=== PATIENT | male | born 1945 | race Caucasian/White ===

== ENCOUNTER 2022-10-17 09:18 | Outpatient (REF) | payer MEDICARE, SELFPAY ==
[2022-10-17 11:42] LABS: Vitamin B12 624 pg/mL (200-900)
[2022-10-21 10:51] LABS: Lyme Abs Screen POSITIVE
[2022-10-22 15:38] LABS: 18 KD (IgG) Band NON-REACTIVE; 23 KD (IgG) Band REACTIVE; 23 KD (IgM) Band REACTIVE; 28 KD (IgG) Band NON-REACTIVE; 30 KD (IgG) Band NON-REACTIVE; 39 KD (IgM) Band NON-REACTIVE; 39KD (IgG) Band NON-REACTIVE; 41 KD (IgM) Band REACTIVE; 41KD (IgG) Band REACTIVE; 45 KD (IgG) Band NON-REACTIVE; 58 KD (IgG) Band NON-REACTIVE; 66 KD (IgG) Band NON-REACTIVE; 93 KD (IgG) Band NON-REACTIVE; Lyme IgG Blot Interp NEGATIVE (NEGATIVE); Lyme IgM Blot Interp POSITIVE (NEGATIVE)
== END 2022-10-17 09:19 | disposition home or self-care (01) ==
LOC: HO.LAB 09:18
PROVIDERS: Visit Provider Psychiatry & Neurology Neurology
DX: G30.9 Alzheimer's disease, unspecified (principal)
CPT/HCPCS: 36415; 82607; 86617; 86618

== ENCOUNTER 2025-05-17 08:28 | Outpatient (AMB) | payer BC, SELFPAY ==
--- OUTSIDE RECORDS SUMMARY | 2025-05-17 08:36 | XMS_ITS | Clinical Summary ---
Author Organization [employer] Address [address] [facility] [address] [place] [address] Care Team Providers Care Chief Radiology Name Role Phone Cristina Estevez FURNACE LOADER Primary Care Provider [phone] Allergies Active Allergy Reactions Criticality Noted Date Comments Bee Venom Anaphylaxis High 12/31/2022 Other reaction(s): head and neck swelling HAS NOT BEEN STUNG IN OVER 30 YEARS Medications EPINEPHrine (Epipen) 0.3 MG/0.3ML injection syringe as directed Injection prn bee sting for 30 days 04/09/20 14 Active Multiple Vitamins-[place] als (Multivitamin Adults 50+) tablet Multivitamin Active aspirin 81 MG EC tablet Take 81 mg by mouth in the morning. Active saccharomyces boulardii (Florastor) 250 MG capsule Take 250 mg by mouth Once per day. Active tamsulosin (Flomax) 0.4 MG 24 hr capsuleIndicat ions:Benign prostatic hyperplasia with urinary frequency TAKE 2 CAPSULES (0.8 MG) BY MOUTH IN THE MORNING. 180 capsule 3 11/16/19 25 026 Active memantine (Namenda) 10 MG tablet Take 1 tablet (10 mg) by mouth 2 times daily. 180 tablet 3 01/19/20 25 026 Active donepezil (Aricept) 10 MG tabletIndicati ons:Tremor, unspecified TAKE 1 TABLET BY MOUTH EVERYDAY AT BEDTIME 90 tablet 1 04/05/20 25 Active traZODone (Desyrel) 50 MG tablet TAKE 1 TABLET BY MOUTH EVERY DAY AT BEDTIME NEEDED X90 DAYS 90 tablet 05/10/20 25 Active traZODone (Desyrel) 50 MG tablet TAKE 1 TABLET BY MOUTH EVERY DAY AT BEDTIME NEEDED X90 DAYS 90 tablet 02/10/20 25 025 Discontinued Active Problems Problem Noted Date Diagnosed Date Alzheimer's dementia 07/22/2024 Overview (07/22/2024): Diagnosed with early-onset Alzheimer's dementia by neurologist 06/2024. PET scan ordered by neuro. He is considering IV therapy Leqembi. He is cognitively intact at this time, able to perform ADLs. Encouraged to follow-up with neuro for any new symptoms or changes. Chronic pain of right knee 04/20/2024 Overview (07/22/2024): Intermittent for years. Fell into a ditch and hit concrete forms many many years ago. Has been worse for the last 4 months. Discussed can use knee sleeve if pain returns and to notify provider. Discussed physical therapy, patient declines at this time. Tick bite 04/20/2024 Overview (04/20/2024): Needs prophylaxis to have at home. Had multiple documented episodes of Lyme disease. Works on farm. Elevated CK 04/02/2024 Overview (04/02/2024): Images from the original note were not included. Liver and kidney functions remained normal during elevated CK. Advised aggressive hydration. CK normalized, unclear if associated to excessive yardwork vs Lyme. Will continue to monitor. Other fatigue 04/02/2024 Overview (04/02/2024): In treatment for Lyme - brain fog improving but fatigue continues. Will check labs and continue to discuss. 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 Referred to rheumatology Assessment & Plan (10/28/2023 9:29 PM EST): Positive Lyme panel September 2022 with unknown duration of disease Treated with doxycycline 3-4 times between October 2021 and July 2023 Persistently Lyme antibody IgG and IgM positive, most recently tested 08/06/23 Literature review indicates that both IgG and IgM antibodies can persist months or years after successful treatment and IgM antibodies should not be considered to indicate ongoing infection Persistent symptoms indicative of post-Lyme syndrome. Refer to rheumatology for ongoing management Other constipation 08/28/2023 Overview (09/12/2023): Constipation, generally while traveling, but started prior to trip. Was significant enough that pt cancelled his trip. Did not improve with Miralax. Had watery stool with Milk of Mag. No blood, N/V, abdominal pain. Abdominal exam benign with increased bowel sounds. Discussed options - symptoms are improving so watch and wait recommended. If symptoms fail to resolve or worsen, recommend abdominal xray. Can treat symptomatically if needed. Can take GasX for bloating/flatulence. If constipation returns can trial Colace stool softener. If diarrhea/watery stools - can take Imodium. Follow up with provider next week with update. Pigment dispersion syndrome of both eyes 023 Counseling about travel 06/13/2023 Overview (09/12/2023): Upcoming trip to [facility], leaving 09/06/23. Has been multiple times in the past. Reviewed CDC immunization recommendations - Mr. Barney states he has had all the recommended vaccines. Discussed Malaria prophylaxis - states it upsets his stomach and has decided against taking it. Routine general medical exam ination at a health care facility 05/15/2023 Overview (05/15/2023): CPE done 05/15/23. HEALTH CARE MAINTENANCE: Colonoscopy (age 45-75): Last colonoscopy at [facility]. No diarrhea/constipation/blood in stool. AAA Screen (age 65-75, ever smoked): Never smoker LDCT (smoke >30 pack year, age 55-80): Never smoker DEXA (age 70): Never been done. IMMUNIZATIONS: Tetanus (every 10 years): Done 02/2019 Pneumococcal (age 65): Done 2016 Shingrix (age 50): Done 2019 COVID: Pfizer x 1. Assessment & Plan (05/15/2023 5:37 PM EDT): All HCM reviewed, as above. Osteoporosis screening 05/15/2023 Assessment & Plan (05/15/2023 5:36 PM EDT): Never been done. Agreeable to DEXA scan. Decreased hearing of both ears 05/15/2023 Enlarged prostate 05/15/2023 Arthralgia of multiple joints 02/06/2023 Lyme disease 02/06/2023 Overview (04/20/2024): History of multiple episodes of Lyme requiring treatment. Was treated September 2022. Treated with Doxycycline x 21 days. Symptoms resolved. Symptoms returned 03/2023, Lyme +. Treated with Doxycycline x 21 days. Symptoms returned 02/2024, Lyme +. Treated with Doxycycline x 21 days. Now feeling back to baseline. Will have Doxycycline prophylaxis to take any time there is a tick on him to help prevent future Lyme disease. Assessment & Plan (05/15/2023 5:34 PM EDT): Lyme testing positive (IgM). Discussed treatment options. Will start Doxycycline x 21 days. Reviewed medication, administration, and potential side effects. After successful treatment, plan to Rx prophylactic Doxycycline for after tick bite to prevent Lyme disease in future. Minimal cognitive impairment 02/06/2023 Overview (02/06/2023): Engaged with Neurology - Dr. Lora. On Aricept. Muscle cramps 02/06/2023 Overview (04/02/2024): Having occasional leg cramps. Bought OTC Magnesium - ok to start taking. Call clinic if S/S fail to improve or worsen in any way. Assessment & Plan (02/06/2023 9:22 AM EDT): Mostly at night. Was told is side effect from Aricept. Will check labs. Tremor 02/06/2023 Overview (05/15/2023): Seen by Dr. Gutierrez, Neurology. Essential tremor - No further assessment needed. [place] 02/06/2023 Assessment & Plan (02/06/2023 9:21 AM EDT): Seen by podiatry 6 months ago - corn was shaved. Continues to have pain when walking. Advised OTC [place] pads or hydrocolloid bandages until able to be seen by podiatry again. Pt will call for an appointment to see director of content and programming. Low back pain 12/31/2022 Overview (02/06/2023): Was seeing chiropractor. Was having lumbar muscle spasms. None in a few years. Insomnia 12/31/2022 Overview (07/22/2024): Sleep maintenance insomnia. No difficulty with sleep onset. Taking trazodone 50 mg most nights, continues with sleeping issue. He states that he is not bothered by this issue overall. No daytime fatigue. Advised patient that he can increase trazodone to 75 mg if needed. We will continue to monitor. Assessment & Plan (05/15/2023 5:32 PM EDT): Will continue current treatment plan. Hammer toe of left foot 12/31/2022 Anxiety 12/31/2022 Overview (02/06/2023): Denies any current symptoms. Benign prostatic hyperplasia with urinary freque ncy 12/31/2022 Overview (09/12/2023): On Flomax. Was helpful at first, but now symptoms restarting. Discussed treatment options. Will increase Flomax dose. Assessment & Plan (02/06/2023 9:18 AM EDT): Symptoms improved significantly on Tamsulosin. Last month - UA in office normal. PSA 12/2021 1.3 - will repeat. Resolved Problems Problem Noted Date Diagnosed Date Resolved Date Decreased range of motion of shoulder 02/06/2023 02/06/2023 Difficulty sleeping 02/06/2023 02/07/20 23 Prostatism 02/06/2023 02/06/2023 Shoulder pain 02/06/2023 02/06/2023 Encounters Date Type Department Care Team Description 05/09/2025 Refill [facility] MEDICAL [address] [place] [address] Malou Ham DO 04/05/2025 3:30 PM EDT Office Visit [facility] OPTOMETRY [address] [place] [address] Maki Andrade, OD Nuclear sclerosis of both eyes (Primary Dx); Pigment dispersion syndrome of both eyes 04/04/2025 Refill [facility] MEDICAL [address] [place] [address] Cristina Estevez FNP Tremor, unspecified 03/03/[address] [facility] MEDICAL [address] [place] [address] Cristina Estevez FNP Referral Update from Last 3 Months Immunizations Immunization Administration Dates Next Due Influenza, IIV3, injectable 09/09/2019, 5 Influenza, Split (incl. azael fied surface antigen) 08/17/2014,07/28/2012,08/15/2011,08/25 Pneumococcal Conjugate PCV 13 11/11/2015 Pneumococcal Polysaccharide PPSV23 10/25/2011 TD (adult), 2 Lf tetanus tox oid, preservative free, adsorbed 11/23/2000 Tdap 03/10/2019,07/21/2010 Zoster, live 08/10/2019,03/29/2012 Social History Tobacco Use Types Packs/Day Years Used Date Smoking Tobacco: Never Passive Smoke Exposure: Never Smokeless Tobacco: Never Alcohol Use Standard Drinks/Week Comments Never 0 (1 standard drink = 0.6 oz pur e alcohol) PHQ-2 Answer Date Recorded Patient Health Questionnaire-2 Score 0 12/31/2022 Alcohol Answer Date Recorded How often do you have a drink containing alcohol ? 0 10/10/2023 How many drinks containing a lcohol do you have on a typical day when you are drinking? 0 10/10/2023 How often do you have six or more drinks on one occasion? 0 10/10/2023 Housing Stability Answer Date Recorded What is your housing situation today? I have marcie pulido 02/26/[address] you li ve. Do you have problems with any of the following? None of the above 02/26/2024 Food Insecurity Answer Date Recorded Within the past 12 months, y ou worried that your food would run out before you got money to buy more: Never True 02/26/2024 Within the past 12 months,th e food you bought just didn't last and you didn't have enough money to get more: Never True 10/2023 Transportation Answer Date Recorded In the past 12 months, has l ack of transportation kept you from medical appts, meetings, work or from getting things needed for daily living? No 02/26/2024 Intimate Partner Violence Answer Date R ecorded Within the last year, have y ou been afraid of your partner or ex-partner? 2 10/10/2023 Within the last year, have y ou been humiliated or emotionally abused in other ways by your partner or ex-partner? 2 Within the last year, have y ou been kicked, hit, slapped, or otherwise physically hurt by your partner or ex-partner? 2 10/10/2023 Within the last year, have y ou been raped or forced to have any kind of sexual activity by your partner or ex-partner? 2 10/10/2023 Utilities Answer Date Recorded In the past 12 months, has t he electric, gas, oil or water company threatened to shut off services in your home? No 02/26/2024 Depression Answer Date Recorded Patient Health Questionnaire-2 Score 0 02/26/2024 Education Answer Date Recorded What is the highest level of school you have completed or the highest degree you have received? 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 Not on file Not on file Not on file Last Filed Vital Signs Vital Sign Reading Time Taken Comments Blood Pressure 126/92 08/31/2024 12:19 PM EST Pulse 63 08/31/2024 12:19 PM EST Temperature 36.6 C (97.8 F) 08/31/2024 12:19 PM EST Respiratory Rate 14 05/09/2023 11:33 AM EDT Oxygen Saturation 96% 08/31/2024 12:19 PM EST Inhaled Oxygen Concentration - - Weight 79.4 kg (175 lb) 08/31/2024 12:19 PM EST Height 185.4 cm (6' 1 ) 08/31/2024 12:19 PM EST Body Mass Index 23.09 08/31/2024 12:19 PM EST Plan of Treatment Upcoming Encounters Date Type Department Care Team (Late st Contact Info) Description 08/11/2025 8:30 AM EDT Office Visit [facility] OPTOMETRY [address] [place], [place] [id number] Maki Andrade, ROSETTE [address] [place] [address] Health Maintenance Due Date Last Done Comments Alcohol/Substance Use Screening 1957 Zoster Vaccines (2 of 3) 10/05/2019 08/10/2019, 11/2011 RSV Patients and Patients Aged 60 years or older (1 - 1-dose 75+ series) 2020 COVID-19 Vaccine (2 - season) 2024 12/26/2020 Depression Screening 02/25/2025 02/26/2024, 02/26/20 24 SDOH Screening 02/25/2025 02/26/2024 Influenza Vaccine (#1) 2025 , 09/09/2019, 09/09/2015, Additional history exists Tobacco Screening 04/05/2026 04/05/2025 Lipid Panel 08/06/2028 08/06/2023, 12/27, 01/18/2022 DTaP/Tdap/Td Vaccines (3 - Td or Tdap) 03/10/2029 03/10/2019, 07/21/2010, 11/23/2000 Pneumococcal Vaccine: 50+ Years Completed 11/11/2015, 10/25/2011 HIB Vaccines Aged Out No longer eligi ble based on patient's age to complete this topic HPV Vaccines Aged Out No longer eligi ble based on patient's age to complete this topic Hepatitis A Vaccines Aged Out No long er eligible based on patient's age to complete this topic Hepatitis B Vaccines Aged Out No long er eligible based on patient's age to complete this topic IPV Vaccines Aged Out No longer eligi ble based on patient's age to complete this topic Meningococcal B Vaccine Aged Out No l onger eligible based on patient's age to complete this topic Meningococcal Vaccine Aged Out No kristen iva eligible based on patient's age to complete this topic RSV under 20 months Aged Out No longe r eligible based on patient's age to complete this topic Rotavirus Vaccines Aged Out No longer eligible based on patient's age to complete this topic Procedures Procedure Name Priority Date/Time Associated Diagnosis Comments LIPID PANEL, STANDARD Routine 08/06/2023 9:02 AM EDT Lipid screening from Last 3 Months or Most Recently Relevant to Health Maintenance Results * Lipid panel (08/06/2023 9:02 AM EDT) Cholesterol, Total 195 (<200) MG/DL [facility] Triglyceride (mg/dL) in Serum/Plasma 149 (<150) MG/DL [facility] HDL Cholesterol 54 (>39) MG/DL [facility] LDL Cholesterol, Calculated 111 (0-130) MG/DL [facility] Non HDL Chol. (LDL+VLDL) 141 (<160) MG/DL [facility] Comment: Testing performed or reported by [facility], a Service of [facility], [address] [place] [address] Prasad Tee MD, Vp Marketing [facility]# [id number] Blood Venous blood specimen / Unknown 08/06/2023 9:02 AM EDT 08/06/2023 9:03 AM EDT Cristina ROBLES LAB BLOOD ORDERABLES Final Resul t [address] [id number] from Last 3 Months or Most Recently Relevant to Health Maintenance Insurance [facility] MEDIC[facility]PLACEMENT PPO [facility] MEDICARE REPLACEMENT PPO Care Teams Chief Radiology Relationship Specialty Start Date End Date Cristina Estevez FNP [address] [place] [address] PCP - General Family Medicine 12/31/22
--- NOTE | 2025-05-17 08:37 | MHC.OFFVIS ---
Intake Visit Reasons: AD Allergies bee pollen (bee stings) Allergy (Verified 11/23/24 07:44) Anaphylaxis Medication List - Last Reconciled 05/17/25 by Harsh Lora MD aspirin 81 mg PO DAILY docusate sodium (Colace) 100 mg PO DAILY donepezil 10 mg PO BEDTIME doxepin 10 mg PO DAILY doxycycline hyclate 100 mg PO BID lecanemab-irmb (Leqembi) IV memantine 10 mg PO BID HPI Comments Details: 80 yo RH man, PHD in [employer] who worked at [employer] until he retired, now was working as a romero in [place], has been involved with an [employer] helping people in [place] for higher education, was here for dementia and tremor. A PET scan was done in Jul 2024, which showed amyloid deposition suggestive of Alzheimer disease. After discussing risks and benefits, he was started on Leqembi, which he started on Nov 24, 2024 at [facility]. He made a visit to [facility] without any significant issues though somebody was with him all the time. He said that he was forgetting people's names but ultimately it would Come back to him. No significant behavioral issues. Sometime he was taking trazodone at night for sleep. He was tolerating infusions without complications or side-effects and was scheduled to have an MRI tomorrow. He in his had number of questions that were answered. 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 HEENT:?No headache, vision changes, hearing loss, nasal congestion, sore throat. Neurological:?Forgetfulness Psychiatric:?No anxiety, depression, mood swings, sleep disturbance, or hallucinations. Endocrine:?No heat/cold intolerance, polydipsia, polyuria, or hair/skin changes. Hematologic/Lymphatic:?No easy bruising, bleeding, or lymphadenopathy. Integumentary (Skin):?No rash, lesions, itching, or color changes. ? Physical Exam Neuro Other: Mental Status: Alert and oriented to person, place, and time. Normal attention. Normal spontaneous speech, fluency, and comprehension. Cranial Nerves: CN III, IV, : Pupils equal, round, reactive to light and accommodation. Extraocular movements are normal. CN V: Facial sensation is normal. CN VII: Facial movements symmetrical. CN VIII: Hearing intact to bedside conversation is normal. CN IX, X: Palate elevates symmetrically. CN XI: Shoulder shrug and head turn symmetrical. CN XII: Tongue midline without atrophy or fasciculations. Motor: Bulk and tone normal in all extremities. No significant muscle weakness in arms and legs. No drift. Reflexes: Deep tendon reflexes 2+ and symmetric. Plantar response down-going bilaterally. Coordination: [id number] and [id number]-rn-[id number] testing normal. No dysmetria. Gait and Station: No obvious gait abnormality. No ataxia or instability. Extrapyramidal: Full facial expressions and blinking. No rigidity. Movements are appropriate with no tremor or abnormality. Speech: Normal; no dysarthria or tremor. Assessment & Plan Assessment & Plan (1) Alzheimer dementia: Comment: MRI brain WO at [facility] in December 2023: No amyloid related imaging abnormalities PET scan at [facility] in Jul 2024: Positive MRI brain WO at [facility] in Oct 2022: mild diff atrophy and mild MVD CTA WO at [place] in Oct 2022: mod cerebellar atrophy, mild basilar atherosclerotic disease Code(s): G30.9 - Alzheimer's disease, unspecified; F02.80 - Dementia in other diseases classified elsewhere, unspecified severity, without behavioral disturbance, psychotic disturbance, mood disturbance, and anxiety Category: Medical Qualifiers: Alzheimer's disease onset: late onset Dementia severity: mild Dementia behavioral or psychological symptom: without behavioral, psychotic, or mood disturbance or anxiety Qualified Code(s): G30.1 - Alzheimer's disease with late onset; F02.A0 - Dementia in other diseases classified elsewhere, mild, without behavioral disturbance, psychotic disturbance, mood disturbance, and anxiety (2) Familial tremor: Code(s): G25.0 - Essential tremor Category: Medical Plan Impression: Mild Alzheimer dementia Rec: a: Continue Lequembi b: Repeat MRI tomorrow c: Repeat PET in Oct 2025 d: Continue Donepezil 10mg a day e: Continue Memantine 10mg bid f: May take Trazodone 50mg one at night as needed for sleep Orders: Orders Liver Panel Today G25.0 - Essential tremor Coding Level of Care Code Tele Est Pt Level 5 (68849) Diagnoses Mild late onset Alzheimer's dementia without behavioral disturbance, psychotic disturbance, mood disturbance, or anxiety G30.1; F02.A0 Alzheimer's disease onset: late onset Dementia severity: mild Dementia behavioral or psychological symptom: without behavioral, psychotic, or mood disturbance or anxiety Familial tremor G25.0
== END 2025-05-17 09:07 | disposition home or self-care (01) ==
LOC: HO.HSM 08:29
PROVIDERS: PCP Internal Medicine; Visit Provider Psychiatry & Neurology Neurology
DX: G30.1 Alzheimer's disease with late onset (principal); F02.A0 Dementia in other diseases classified elsewhere, mild, without behavioral disturbance, psychotic disturbance, mood disturbance, and anxiety; G25.0 Essential tremor
CPT/HCPCS: 99214

== ENCOUNTER 2025-06-08 06:32 | Outpatient (REF) | payer BC, SELFPAY ==
[2025-06-08 08:29] LABS: Alanine Aminotransferase 24 U/L (0-40); Albumin Level 4.1 g/dL (3.5-5.0); Alkaline Phosphatase 63 U/L (39-117); Aspartate Amino Transferase 35 U/L (5-37); Total Protein 6.2 g/dL (6.5-8.0)
== END 2025-06-08 06:33 | disposition home or self-care (01) ==
LOC: HO.LAB 06:32
PROVIDERS: Visit Provider Psychiatry & Neurology Neurology
DX: G25.0 Essential tremor (principal)
CPT/HCPCS: 36415; 80076

== ENCOUNTER 2025-08-19 08:12 | Outpatient (AMB) | payer BC, SELFPAY ==
--- NOTE | 2025-08-19 08:17 | MHC.OFFVIS ---
Intake Visit Reasons: 3 MO FU Allergies bee pollen (bee stings) Allergy (Verified 11/23/24 07:44) Anaphylaxis HPI Comments Details: 80 yo RH man, PHD in [place] who worked at [employer] until he retired, now was working as a romero in [place], has been involved with an [employer] helping people in [place] for higher education, was here for dementia and tremor. A PET scan was done in Jul 2024, which showed amyloid deposition suggestive of Alzheimer disease. After discussing risks and benefits, he was started on Leqembi, which he started on Nov 24, 2024 at [facility] [place]. He was here with his . Generally, he was doing okay and stable. Family has not noted any significant change in his cognition or behavior. He was fully active in his day-to-day activities including taking care of his property that requires heavy physical work. 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 - General: Denies significant change in health since last evaluation. Physical Exam Neuro Other: Mental Status: Alert and oriented to person, place, and time. Normal attention. Normal spontaneous speech, fluency, and comprehension. Cranial Nerves: CN II: Visual gutierrez full to confrontation, visual acuity intact. CN III, IV, : Pupils equal, round, reactive to light and accommodation. Extraocular movements are normal. CN V: Facial sensation is normal. CN VII: Facial movements symmetrical. CN VIII: Hearing intact to bedside conversation is normal. CN IX, X: Palate elevates symmetrically. CN XI: Shoulder shrug and head turn symmetrical. CN XII: Tongue midline without atrophy or fasciculations. Motor: Bulk and tone normal in all extremities. No significant muscle weakness in arms and legs. No drift. Reflexes: Deep tendon reflexes 2+ and symmetric. Plantar response down-going bilaterally. Coordination: [id number] and [id number] testing normal. No dysmetria. Gait and Station: No obvious gait abnormality. No ataxia or instability. Extrapyramidal: Full facial expressions and blinking. No rigidity. Movements are appropriate with no tremor or abnormality. Speech: Normal; no dysarthria or tremor. Assessment & Plan Assessment & Plan (1) Alzheimer dementia: Comment: MRI brain WO at [facility] in April 2025: No change, MVD MRI brain WO at [facility] in December 2023: No amyloid related imaging abnormalities PET scan at [facility] in Jul 2024: Positive MRI brain WO at [facility] in Oct 2022: mild diff atrophy and mild MVD CTA WO at [place] in Oct 2022: mod cerebellar atrophy, mild basilar atherosclerotic disease Code(s): G30.9 - Alzheimer's disease, unspecified; F02.80 - Dementia in other diseases classified elsewhere, unspecified severity, without behavioral disturbance, psychotic disturbance, mood disturbance, and anxiety Category: Medical Qualifiers: Alzheimer's disease onset: late onset Dementia behavioral or psychological symptom: without behavioral, psychotic, or mood disturbance or anxiety Dementia severity: mild Qualified Code(s): G30.1 - Alzheimer's disease with late onset; F02.A0 - Dementia in other diseases classified elsewhere, mild, without behavioral disturbance, psychotic disturbance, mood disturbance, and anxiety (2) Familial tremor: Code(s): G25.0 - Essential tremor Category: Medical Plan Impression: Mild Alzheimer dementia Rec: a: Continue Lequembi b: Continue Donepezil 10mg a day c: Continue Memantine 10mg bid d May take Trazodone 50mg one at night as needed for sleep We engaged in a thorough discussion regarding the patient?s cognitive concerns. I suggested increasing monitoring, with plans to revisit the situation with a PET scan early next year after resolving insurance issues. The potential for insurance obstacles was discussed, and I advised that the patient negotiate if self-payment is needed. Coding Level of Care Code Est Pt Level 5 (25966) Diagnoses Mild late onset Alzheimer's dementia without behavioral disturbance, psychotic disturbance, mood disturbance, or anxiety G30.1; F02.A0 Alzheimer's disease onset: late onset Dementia behavioral or psychological symptom: without behavioral, psychotic, or mood disturbance or anxiety Dementia severity: mild Familial tremor G25.0
--- OUTSIDE RECORDS SUMMARY | 2025-08-19 08:33 | XMS_ITS | Clinical Summary ---
Author Organization [email or web address] Address [address] [place] [address] Care Team Providers Care Cleaner And Preparer Name Role Phone PcpMelissa Unassigned Primary Care Provider U navailable Allergies Active Allergy Reactions Criticality Noted Date Comments Bee Venom Anaphylaxis High 12/31/2022 Other reaction(s): head and neck swelling HAS NOT BEEN STUNG IN OVER 30 YEARS Medications EPINEPHrine (Epipen) 0.3 MG/0.3ML injection syringe as directed Injection prn bee sting for 30 days 4 Active Multiple Vitamins-Minera ls (Multivitamin Adults 50+) tablet Multivitamin Active aspirin 81 MG EC tablet Take 81 mg by mouth in the morning. Active saccharomyces boulardii (Florastor) 250 MG capsule Take 250 mg by mouth Once per day. Active tamsulosin (Flomax) 0.4 MG 24 hr capsuleIndicati ons:Benign prostatic hyperplasia with urinary frequency TAKE 2 CAPSULES (0.8 MG) BY MOUTH IN THE MORNING. 180 capsule 3 5 11/16/19 26 Active memantine (Namenda) 10 MG tablet Take 1 tablet (10 mg) by mouth 2 times daily. 180 tablet 3 5 01/19/20 26 Active donepezil (Aricept) 10 MG tabletIndicatio ns:Tremor, unspecified TAKE 1 TABLET BY MOUTH EVERYDAY AT BEDTIME 90 tablet 1 5 Active traZODone (Desyrel) 50 MG tablet TAKE 1 TABLET BY MOUTH EVERY DAY AT BEDTIME NEEDED X90 DAYS 90 tablet 5 Active Active Problems Problem Noted Date Diagnosed Date Alzheimer's dementia ([facility]) 07/22/2024 Overview (07/22/2024): Diagnosed with early-onset Alzheimer's [...] travel 06/13/2023 Overview (09/12/2023): Upcoming trip to [facility], leaving 09/06/23. Has been multiple times in [...] MAINTENANCE: Colonoscopy (age 45-75): Last colonoscopy at [facility]. No diarrhea/constipation/blood in stool. AAA Screen (age 65-75, ever smoked): Never smoker LDCT (smoke >30 pack year, age 55-80): Never smoker DEXA (age 70): Never been done. IMMUNIZATIONS: Tetanus (every 10 years): Done 02/2019 Pneumococcal (age 65): Done 2015 Shingrix (age 50): Done 2018 COVID: Pfizer x 1. Assessment & Plan [...] Essential tremor - No further assessment needed. [place] 02/06/2023 Assessment & Plan (02/06/2023 9:21 AM EDT): Seen by podiatry 6 months ago - corn was shaved. Continues to have pain when walking. Advised OTC [place] pads or hydrocolloid bandages until able to be seen by podiatry again. Pt will call for an appointment to see tinter photograph. Low back pain 12/31/2022 Overview (02/06/2023): Was [...] Prostatism 02/06/2023 02/06/2023 Shoulder pain 02/06/2023 02/06/2023 Immunizations Immunization Administration Dates Next Due Influenza, [...] Care Team (Late st Contact Info) Description 11/04/2025 8:45 AM EST Office Visit [facility] [address] [place] [address] Malou Ham DO [address] [place] [address] Health Maintenance Due Date Last Done Comments Alcohol/Substance Use Screening 1957 Zoster Vaccines (2 of 3) 10/05/2019 08/10/2019, 11/2011 RSV Patients and Patients Aged 60 years or older (1 - 1-dose 75+ series) 2020 Depression Screening 02/25/2025 02/26/2024, 02/26/20 24 SDOH Screening 02/25/2025 02/26/2024 COVID-19 Vaccine (3 - season) 2025 07/15/2024, 12/26/2020 Influenza Vaccine (#1) 2025 , 09/09/2019, 09/09/2015, [...] AM EDT) Cholesterol, Total 195 (<200) MG/DL [facility] Triglyceride (mg/dL) in Serum/Plasma 149 (<150) MG/DL [facility] HDL Cholesterol 54 (>39) MG/DL [facility] LDL Cholesterol, Calculated 111 (0-130) MG/DL [facility] Non HDL Chol. (LDL+VLDL) 141 (<160) MG/DL [facility] Comment: Testing performed or reported by [facility] [employer], a Service of [facility], [address] [place] [id number] Prasad Tee MD, [employer] [facility]# [id number] Blood Venous blood specimen / Unknown 08/06/2023 9:02 AM EDT 08/06/2023 9:03 AM EDT Cristina Estevez [facility] BLOOD ORDERABLES Final Resul t [address] [id number] from Last 3 Months or Most Recently Relevant to Health Maintenance [place] [address] MEDICARE REPLACEMENT PPO [facility] MEDICARE REPLACEMENT PPO EYE MED Care Teams Cleaner And Preparer Relationship Specialty Start Date End Date Melissa Schwartz Unassigned PCP - General Family Medicine 07/20/25
== END 2025-08-19 08:33 | disposition home or self-care (01) ==
LOC: HO.HSM 08:13
PROVIDERS: PCP Internal Medicine; Visit Provider Psychiatry & Neurology Neurology
DX: G30.1 Alzheimer's disease with late onset (principal); F02.A0 Dementia in other diseases classified elsewhere, mild, without behavioral disturbance, psychotic disturbance, mood disturbance, and anxiety; G25.0 Essential tremor
CPT/HCPCS: 99214